=== PATIENT | male | born 1955 | race Caucasian/White ===

== ENCOUNTER 2020-06-07 07:23 | Inpatient (IN) ==
[~2020-06-07 07:23] MED LIST: Bacitracin 50,000 UNIT, Polymyxin B Sulfate 500,000 UNIT, Sodium Chloride IRRigation 1,... IR ONE
[2020-06-07] MEDS ORDERED: Clindamycin 900 MG/50 ML 900 MG/50 ML IV.SOLN IVPB ONE (07:51)
[2020-06-07] MEDS ORDERED: Ringers Solution, Lactated 1,000 ML IVC SCH ×3 (08:00→13:26)
[2020-06-07] MEDS ORDERED: *HR* OxyCODONE Immed Rel 5 MG TABLET PO PRN (08:25)
[2020-06-07] MEDS ORDERED: Ketorolac 15 MG/ML VIAL IVP ONE (08:25)
[2020-06-07] MEDS ORDERED: Ondansetron 4 MG/2 ML VIAL IVP ONE (08:25)
[2020-06-07] MEDS ORDERED: Acetaminophen IV 1,000 MG/100 ML INFUS..BTL ONE (08:35)
[2020-06-07] MEDS ORDERED: *HR* Midazolam HCl 2 MG/2 ML VIAL ONE (08:39)
[2020-06-07] MEDS ORDERED: *HR* FentaNYL (PF) 100 MCG/2 ML VIAL ONE ×2 (08:39→11:33)
[2020-06-07] MEDS ORDERED: *HR* Rocuronium Bromide 50 MG/5 ML VIAL ONE (08:39)
[2020-06-07] MEDS ORDERED: Ondansetron 4 MG/2 ML VIAL ONE (08:39)
[2020-06-07] MEDS ORDERED: Lidocaine -MPF 2% 2 ML VIAL ONE (08:39)
[2020-06-07] MEDS ORDERED: Dexamethasone 4 MG/ML VIAL ONE (08:39)
[2020-06-07] MEDS ORDERED: *HR* Propofol 200 MG/20 ML VIAL IVP ONE (08:39)
[2020-06-07] MEDS ORDERED: *HR* Remifentanil 1 MG VIAL IVP ONE (08:40)
[2020-06-07] MEDS ORDERED: *HR* PHENYLEPHRINE 1,000 MCG/10 ML SYRINGE IVP ONE (09:49)
[2020-06-07] MEDS ORDERED: EPHEDrine 50 MG/ML VIAL ONE (09:58)
[2020-06-07] MEDS ORDERED: *HR* HYDROMORPHONE 2 MG/ML VIAL ONE (12:14)
[2020-06-07] MEDS ORDERED: Albuterol 2.5 MG/3 ML NEBULIZER IH PRN (13:26)
[2020-06-07] MEDS ORDERED: ALOE VERA TP PRN (13:26)
[2020-06-07] MEDS ORDERED: Sennosides/Docusate Sodium TABLET PO PRN (13:26)
[2020-06-07] MEDS ORDERED: Naloxone 0.4 MG/ML INJ IVP PRN (13:26)
[2020-06-07] MEDS ORDERED: Ondansetron 4 MG/2 ML VIAL IVP PRN (13:26)
[2020-06-07] MEDS ORDERED: FLUOROURACIL APPL TP PRN (13:26)
[2020-06-07] MEDS ORDERED: Acetaminophen 325 MG TABLET PO PRN ×2 (13:26)
[2020-06-07] MEDS ORDERED: *HR* HYDROcodone/Acet 5/325 mg TABLET PO PRN (13:26)
[2020-06-07] MEDS ORDERED: COLLAGEN TP PRN (13:26)
[2020-06-07] MEDS: *HR* OxyCODONE Immed Rel 5 MG TABLET PO PRN ×2 (17:05→22:24)
[2020-06-07] MEDS: carvediloL 25 MG TABLET PO SCH (17:06)
[2020-06-07] MEDS: Clindamycin 900 MG/50 ML 900 MG/50 ML IV.SOLN IVPB SCH (17:07)
[2020-06-07] MEDS: Folic Acid 1 MG TABLET PO SCH (17:12)
[2020-06-07] MEDS: Budesonide/Formoterol 160/4.5 1 PUFF INH IH SCH (20:24)
[2020-06-07] MEDS: tiZANidine 4 MG TABLET PO SCH (22:22)
[2020-06-07] MEDS: Pregabalin 75 MG CAPSULE PO SCH (22:23)
[2020-06-07] MEDS: Famotidine 20 MG TABLET PO SCH (22:27)
[2020-06-08] MEDS: Clindamycin 900 MG/50 ML 900 MG/50 ML IV.SOLN IVPB SCH (01:36)
[2020-06-08] MEDS: Budesonide/Formoterol 160/4.5 1 PUFF INH IH SCH ×2 (07:50→22:03)
[2020-06-08] MEDS ORDERED: predniSONE 10 MG TABLET PO SCH (09:00)
[2020-06-08] MEDS: carvediloL 25 MG TABLET PO SCH ×2 (09:46→16:12)
[2020-06-08] MEDS: Famotidine 20 MG TABLET PO SCH ×2 (09:47→20:40)
[2020-06-08] MEDS: Cyanocobalamin (B-12) 1,000 MCG TABLET PO SCH (09:47)
[2020-06-08] MEDS: Spironolactone 25 MG TABLET PO SCH (09:47)
[2020-06-08] MEDS: tiZANidine 4 MG TABLET PO SCH ×2 (09:47→20:42)
[2020-06-08] MEDS: Pregabalin 75 MG CAPSULE PO SCH ×2 (09:47→20:41)
[2020-06-08] MEDS: Loratadine 10 MG TABLET PO SCH (09:47)
[2020-06-08] MEDS: Cholecalciferol (D-3) 1,000 UNIT (25MCG) TABLET PO SCH (09:47)
[2020-06-08] MEDS: DilTIAZem CD (24hr) 180 MG CAP.ER.24H PO SCH (10:00)
[2020-06-08] MEDS ORDERED: Tiotropium 18 MCG inhalation IH SCH (10:00)
[2020-06-08] MEDS ORDERED: *HR* LORazepam 2 MG/ML VIAL IVP PRN ×3 (10:29)
[2020-06-08] MEDS ORDERED: 0.9 % Sodium Chloride 1,000 ML IV ONE (13:41)
[2020-06-08] MEDS ORDERED: Isovue-370 500 ML BOTTLE IVP ONE (13:42)
[2020-06-08 14:39] LABS: Alanine Aminotransferase 15 Units/L (7-52); Albumin 3.6 g/dL (3.5-5.7); Albumin/Globulin Ratio 1.8 (1.1-2.2); Alkaline Phosphatase 57 Units/L (34-104); Aspartate Amino Transferase 15 Units/L (13-39); BUN/Creatinine Ratio 18 (6-26); Bilirubin,Total 0.4 mg/dL (0.3-1.0); Blood Urea Nitrogen 14 mg/dL (8-23); Carbon Dioxide 29 mEq/L (23-29); Chloride 96 mEq/L (98-107); Glucose 126 mg/dL (70-105); Osmolality,Calculated 272 (280-300); Potassium 3.9 mEq/L (3.5-5.1); Sodium 130 mEq/L (136-145); Total Protein 5.6 g/dL (6.4-8.9); eGFR For African Americans > 60 (> 60); eGFR For Non-African Americans > 60 (> 60)
[2020-06-08 14:40] LABS: Basophils % 0.2 %; Hematocrit 37.6 % (37.5-50.1); Immature Granulocytes % 1.4 % (0-4); Lymphocytes # 0.4 K/mcL (0.6-4.6); Lymphocytes % 2.9 %; Mean Corpuscular Hemoglobin 32.4 pg (28.0-33.3); Mean Corpuscular Volume 95.2 fL (83.0-100.0); Mean Platelet Volume 9.3 fL (9.4-12.4); Monocytes % 6.8 %; Neutrophils # 12.3 K/mcL (1.6-8.9); Platelet Count 174 K/mcL (140-400); Red Blood Count 3.95 M/mcL (4.19-5.50); Red Cell Distribution Width 13.2 % (11.5-14.5); Segmented Neutrophils % 88.7 %; White Blood Count 13.9 K/mcL (4.3-11.1)
[2020-06-08 14:41] LABS: Hemoglobin 12.8 g/dL (12.9-16.9)
[2020-06-08] MEDS: Folic Acid 1 MG TABLET PO SCH (15:37)
[2020-06-08] MEDS: 0.9 % Sodium Chloride 1,000 ML IVC SCH (18:02)
[2020-06-08] MEDS ORDERED: Piperacillin/Tazobactam 3.375 GM in 0.9 % Sodium Chloride Mini Bag 100 ML IVPB SCH (18:03)
[2020-06-08] MEDS: cefTRIAXone 1,000 MG in Water for inj. (sterile) 10 ML IVP SCH (18:39)
[2020-06-08] MEDS: predniSONE 20 MG TABLET PO SCH (18:39)
[2020-06-08] MEDS: *HR* OxyCODONE Immed Rel 5 MG TABLET PO PRN (20:50)
[2020-06-08] MEDS ORDERED: Albuterol 2.5 MG/3 ML NEBULIZER IH SCH (22:00)
[2020-06-08] MEDS: Ipratropium/Albuterol Neb 3 ML IH SCH (22:03)
[2020-06-08 22:49] LABS: Adenovirus Not Detected (Not Detect); Coronavirus 229E Not Detected (Not Detect); Coronavirus HKU1 Not Detected (Not Detect); Coronavirus NL63 Not Detected (Not Detect); Coronavirus OC43 Not Detected (Not Detect)
[2020-06-08 22:50] LABS: Bordetella Pertussis Not Detected (Not Detect); Chlamydophila pneumoniae Not Detected (Not Detect); Human Metapneumovirus Not Detected (Not Detect); Human Rhinovirus/Enterovirus Not Detected (Not Detect); Influenza A Subtype 2009 H1 Not Detected (Not Detect); Influenza B Not Detected (Not Detect); Parainfluenza Virus 1 Not Detected (Not Detect); Parainfluenza Virus 2 Not Detected (Not Detect); Parainfluenza Virus 3 Not Detected (Not Detect); Parainfluenza Virus 4 Not Detected (Not Detect); Respiratory Syncytial Virus Not Detected (Not Detect)
[2020-06-09] MEDS: *HR* OxyCODONE Immed Rel 5 MG TABLET PO PRN ×3 (03:22→18:06)
[2020-06-09] MEDS: Ipratropium/Albuterol Neb 3 ML IH SCH ×4 (03:57→22:59)
[2020-06-09] MEDS ORDERED: Acetaminophen IV 1,000 MG/100 ML INFUS..BTL IVPB ONE (10:12)
[2020-06-09] MEDS ORDERED: Pantoprazole 40 MG VIAL IVP ONE (10:15)
[2020-06-09] MEDS: Budesonide/Formoterol 160/4.5 1 PUFF INH IH SCH ×2 (10:47→22:59)
[2020-06-09] MEDS ORDERED: E-Z-HD (BARIUM SULF) SUSPENSION PO ONE (12:31)
[2020-06-09] MEDS: DilTIAZem CD (24hr) 180 MG CAP.ER.24H PO SCH (13:43)
[2020-06-09] MEDS: Loratadine 10 MG TABLET PO SCH (13:44)
[2020-06-09] MEDS: Cholecalciferol (D-3) 1,000 UNIT (25MCG) TABLET PO SCH (13:45)
[2020-06-09] MEDS: Spironolactone 25 MG TABLET PO SCH (13:46)
[2020-06-09] MEDS: Cyanocobalamin (B-12) 1,000 MCG TABLET PO SCH (13:47)
[2020-06-09] MEDS: predniSONE 20 MG TABLET PO SCH (18:07)
[2020-06-09] MEDS: Folic Acid 1 MG TABLET PO SCH (18:07)
[2020-06-09] MEDS: carvediloL 25 MG TABLET PO SCH ×2 (18:07→20:44)
[2020-06-09] MEDS: Pregabalin 75 MG CAPSULE PO SCH ×2 (18:08→20:30)
[2020-06-09] MEDS: Famotidine 20 MG TABLET PO SCH ×2 (18:09→20:30)
[2020-06-09] MEDS: MetroNIDAZOLE 500 MG/100 ML 500 MG/100 ML BAG IVPB SCH ×2 (18:11→23:41)
[2020-06-09] MEDS: cefTRIAXone 1,000 MG in Water for inj. (sterile) 10 ML IVP SCH (18:12)
[2020-06-09] MEDS: tiZANidine 4 MG TABLET PO PRN (20:31)
[2020-06-09] MEDS ORDERED: 0.9 % Sodium Chloride 500 ML IVC ONE (23:23)
[2020-06-09] MEDS: 0.9 % Sodium Chloride 1,000 ML IVC SCH (23:42)
[2020-06-10] MEDS: Ipratropium/Albuterol Neb 3 ML IH SCH ×4 (03:35→21:59)
[2020-06-10] MEDS ORDERED: Levalbuterol Neb 1.25 MG/3 ML IH ONE (05:47)
[2020-06-10] MEDS ORDERED: Levalbuterol Neb 1.25 MG/3 ML ONE (05:51)
[2020-06-10 07:36] LABS: Mycoplasma pneumoniae Not Detected (Not Detect)
[2020-06-10] MEDS: carvediloL 25 MG TABLET PO SCH ×2 (08:46→17:20)
[2020-06-10] MEDS: Spironolactone 25 MG TABLET PO SCH (08:47)
[2020-06-10] MEDS: MetroNIDAZOLE 500 MG/100 ML 500 MG/100 ML BAG IVPB SCH ×2 (09:14→17:21)
[2020-06-10] MEDS: DilTIAZem CD (24hr) 180 MG CAP.ER.24H PO SCH (09:16)
[2020-06-10] MEDS: Famotidine 20 MG TABLET PO SCH ×2 (09:17→20:47)
[2020-06-10] MEDS: Cholecalciferol (D-3) 1,000 UNIT (25MCG) TABLET PO SCH (09:18)
[2020-06-10] MEDS: Loratadine 10 MG TABLET PO SCH (09:18)
[2020-06-10] MEDS: Pregabalin 75 MG CAPSULE PO SCH ×2 (09:18→20:46)
[2020-06-10] MEDS: Cyanocobalamin (B-12) 1,000 MCG TABLET PO SCH (09:19)
[2020-06-10 09:33] LABS: Basophils % 0.3 %; Hematocrit 38.7 % (37.5-50.1); Hemoglobin 12.8 g/dL (12.9-16.9); Immature Granulocytes % 1.1 % (0-4); Lymphocytes # 0.4 K/mcL (0.6-4.6); Lymphocytes % 5.9 %; Mean Corpuscular HGB Conc 33.1 g/dL (31.6-35.5); Mean Corpuscular Hemoglobin 31.4 pg (28.0-33.3); Mean Corpuscular Volume 94.9 fL (83.0-100.0); Mean Platelet Volume 9.2 fL (9.4-12.4); Monocytes # 0.3 K/mcL (0.0-1.3); Monocytes % 4.3 %; Neutrophils # 6.7 K/mcL (1.6-8.9); Platelet Count 160 K/mcL (140-400); Red Blood Count 4.08 M/mcL (4.19-5.50); Red Cell Distribution Width 12.9 % (11.5-14.5); Segmented Neutrophils % 88.4 %; White Blood Count 7.5 K/mcL (4.3-11.1)
[2020-06-10 09:44] LABS: BUN/Creatinine Ratio 23 (6-26); Blood Urea Nitrogen 14 mg/dL (8-23); Calcium 8.6 mg/dL (8.6-10.3); Carbon Dioxide 28 mEq/L (23-29); Chloride 95 mEq/L (98-107); Glucose 148 mg/dL (70-105); Osmolality,Calculated 271 (280-300); Potassium 3.8 mEq/L (3.5-5.1); Sodium 129 mEq/L (136-145); eGFR For African Americans > 60 (> 60); eGFR For Non-African Americans > 60 (> 60)
[2020-06-10] MEDS: Budesonide/Formoterol 160/4.5 1 PUFF INH IH SCH ×2 (10:53→21:59)
[2020-06-10] MEDS: *HR* OxyCODONE Immed Rel 5 MG TABLET PO PRN ×2 (12:52→20:47)
[2020-06-10] MEDS: Folic Acid 1 MG TABLET PO SCH (15:09)
[2020-06-10] MEDS: cefTRIAXone 1,000 MG in Water for inj. (sterile) 10 ML IVP SCH (17:20)
[2020-06-10] MEDS: predniSONE 20 MG TABLET PO SCH (17:58)
[2020-06-10] MEDS: tiZANidine 4 MG TABLET PO PRN (20:47)
[2020-06-10] MEDS: polyethylene glycoL 3350 17 GM POWD.PACK PO SCH (20:48)
[2020-06-10 20:51] LABS: BUN/Creatinine Ratio 26 (6-26); Blood Urea Nitrogen 18 mg/dL (8-23); Calcium 8.6 mg/dL (8.6-10.3); Carbon Dioxide 28 mEq/L (23-29); Chloride 97 mEq/L (98-107); Glucose 117 mg/dL (70-105); Osmolality,Calculated 271 (280-300); Potassium 3.8 mEq/L (3.5-5.1); Sodium 129 mEq/L (136-145); eGFR For African Americans > 60 (> 60); eGFR For Non-African Americans > 60 (> 60)
[2020-06-11] MEDS: MetroNIDAZOLE 500 MG/100 ML 500 MG/100 ML BAG IVPB SCH ×3 (01:37→16:39)
[2020-06-11] MEDS: Ipratropium/Albuterol Neb 3 ML IH SCH ×4 (03:48→21:53)
[2020-06-11] MEDS: DilTIAZem CD (24hr) 180 MG CAP.ER.24H PO SCH (08:22)
[2020-06-11] MEDS: Pregabalin 75 MG CAPSULE PO SCH ×2 (08:23→21:06)
[2020-06-11] MEDS: Cyanocobalamin (B-12) 1,000 MCG TABLET PO SCH (08:23)
[2020-06-11] MEDS: Cholecalciferol (D-3) 1,000 UNIT (25MCG) TABLET PO SCH (08:24)
[2020-06-11] MEDS: Famotidine 20 MG TABLET PO SCH ×2 (08:24→21:06)
[2020-06-11] MEDS: carvediloL 25 MG TABLET PO SCH ×2 (08:24→16:38)
[2020-06-11] MEDS: polyethylene glycoL 3350 17 GM POWD.PACK PO SCH ×2 (08:25→21:06)
[2020-06-11] MEDS: Loratadine 10 MG TABLET PO SCH (08:25)
[2020-06-11] MEDS: *HR* OxyCODONE Immed Rel 5 MG TABLET PO PRN ×3 (08:27→16:39)
[2020-06-11] MEDS: Budesonide/Formoterol 160/4.5 1 PUFF INH IH SCH ×2 (09:49→21:53)
[2020-06-11] MEDS: Folic Acid 1 MG TABLET PO SCH (12:33)
[2020-06-11] MEDS: cefTRIAXone 1,000 MG in Water for inj. (sterile) 10 ML IVP SCH (18:09)
[2020-06-11] MEDS: predniSONE 20 MG TABLET PO SCH (18:09)
[2020-06-12] MEDS: MetroNIDAZOLE 500 MG/100 ML 500 MG/100 ML BAG IVPB SCH ×2 (00:15→10:14)
[2020-06-12] MEDS: tiZANidine 4 MG TABLET PO SCH (02:15)
[2020-06-12] MEDS: Ipratropium/Albuterol Neb 3 ML IH SCH ×4 (03:47→22:42)
[2020-06-12] MEDS: Cyanocobalamin (B-12) 1,000 MCG TABLET PO SCH (10:13)
[2020-06-12] MEDS: polyethylene glycoL 3350 17 GM POWD.PACK PO SCH ×3 (10:13→20:05)
[2020-06-12] MEDS: carvediloL 25 MG TABLET PO SCH ×2 (10:14→17:51)
[2020-06-12] MEDS: DilTIAZem CD (24hr) 180 MG CAP.ER.24H PO SCH (10:14)
[2020-06-12] MEDS: Cholecalciferol (D-3) 1,000 UNIT (25MCG) TABLET PO SCH (10:14)
[2020-06-12] MEDS: Pregabalin 75 MG CAPSULE PO SCH ×2 (10:14→20:06)
[2020-06-12] MEDS: Famotidine 20 MG TABLET PO SCH ×2 (10:14→20:06)
[2020-06-12] MEDS: Loratadine 10 MG TABLET PO SCH (10:14)
[2020-06-12] MEDS: *HR* OxyCODONE Immed Rel 5 MG TABLET PO PRN ×2 (10:27→17:53)
[2020-06-12] MEDS: Budesonide/Formoterol 160/4.5 1 PUFF INH IH SCH ×2 (10:36→22:42)
[2020-06-12] MEDS: Folic Acid 1 MG TABLET PO SCH (13:13)
[2020-06-12] MEDS: predniSONE 20 MG TABLET PO SCH (17:51)
[2020-06-12] MEDS: metroNIDAZOLE 500 MG TABLET PO SCH (20:06)
[2020-06-13] MEDS: Ipratropium/Albuterol Neb 3 ML IH SCH ×2 (03:40→10:53)
[2020-06-13 06:29] VITALS: BP 117/80
[2020-06-13] MEDS ORDERED: levoFLOXacin 750 MG TABLET PO SCH (09:00)
[2020-06-13] MEDS: Loratadine 10 MG TABLET PO SCH (10:44)
[2020-06-13] MEDS: DilTIAZem CD (24hr) 180 MG CAP.ER.24H PO SCH (10:44)
[2020-06-13] MEDS: Famotidine 20 MG TABLET PO SCH (10:44)
[2020-06-13] MEDS: Spironolactone 25 MG TABLET PO SCH (10:44)
[2020-06-13] MEDS: Pregabalin 75 MG CAPSULE PO SCH (10:44)
[2020-06-13] MEDS: carvediloL 25 MG TABLET PO SCH (10:45)
[2020-06-13] MEDS: Cholecalciferol (D-3) 1,000 UNIT (25MCG) TABLET PO SCH (10:45)
[2020-06-13] MEDS: Cyanocobalamin (B-12) 1,000 MCG TABLET PO SCH (10:45)
[2020-06-13] MEDS: metroNIDAZOLE 500 MG TABLET PO SCH (10:45)
[2020-06-13] MEDS: polyethylene glycoL 3350 17 GM POWD.PACK PO SCH (10:45)
[2020-06-13] MEDS: Budesonide/Formoterol 160/4.5 1 PUFF INH IH SCH (10:53)
[2020-06-13] MEDS ORDERED: *HR* Methotrexate 2.5 MG TABLET PO SCH (12:06)
== END 2020-06-13 13:10 | DRG 471 ==
LOC: SAMDAY 07:23 → 3NENU 07:23
PROVIDERS: ADMIT Orthopaedic Surgery Orthopaedic Surgery of the Spine; ATTEND Orthopaedic Surgery Orthopaedic Surgery of the Spine